=== PATIENT | female | born 1995 | race Caucasian/White ===

== ENCOUNTER 2016-05-30 18:19 | Emergency (ER) | payer OTHER ==
[2016-05-30] MEDS ORDERED: ZOFRAN ODT PO ONE (19:16)
--- NOTE | 2016-05-30 19:57 | PROVIDER DOCUMENTATION ---
HPI-Syncope/Dizziness - General Source: patient - History of Present Illness-Syncope/Dizzy Prior Episodes: reports: single episode today Onset/Duration: reports: 1-3 hours ago Timing: reports: improving Position/Activity at time of episode: reports: sitting Symptoms prior to episode: reports: lightheaded, visual disturbance, nausea/ vomiting, chest pain Context: reports: lost consciousness Loss of Consciousness: brief (seconds) Location of injury. (If syncope resulted in an injury.): reports: none Current Symptoms: reports: weakness Recently Seen Here or By Another Healthcare Provider: No <Ivett Levine - Last Filed: 05/30/16 20:23> <Malick Pierre - Last Filed: 05/30/16 21:32> - General Chief Complaint: Flu Symptoms Stated Complaint: CHEST HURTING, DIZZINESS Time Seen by Provider: 05/30/16 19:07 Allergies/Adverse Reactions: Patient Allergies Allergy/AdvReac Type Severity Reaction Status Date / Time No Known Allergies Allergy Verified 05/30/16 18:55 Home Medications: Home Medication List Medication Instructions Recorded Confirmed Last Taken Type Sertraline [Zoloft] 50 mg PO DAILY 04/08/16 05/30/16 Unknown History Azithromycin 250 mg PO DAILY 05/30/16 05/30/16 05/30/16 History Oseltamivir Phosphate 75 mg PO BID 05/30/16 05/30/16 05/30/16 10:00 History Thonzylamine/Phenylephrine/Dm 10 ml PO DIRECTED 05/30/16 05/30/16 05/30/16 History [Poly-Hist Dm Liquid] - History of Present Illness-Syncope/Dizzy Nature of Presenting Problem: 20 yo female presents to ER with syncope, dizziness with change in position. She was diagnosed with the flu yesterday and placed on tamiflu. (AbnerJune Mariama.) Review of Systems - Adult - REVIEW OF SYSTEMS - ADULT Constitutional: reports: see HPI, fatique Eyes: reports: no symptoms reported Ears, Nose, Mouth & Throat: reports: no symptoms reported Cardiovascular: reports: see HPI, chest pain Respiratory: reports: no symptoms reported Gastrointestinal: reports: see HPI, nausea Genitourinary: reports: no symptoms reported Musculoskeletal: reports: see HPI, muscle aches Integumentary: reports: no symptoms reported Neurological: reports: see HPI, syncope Psychiatric: reports: no symptoms reported Endocrine: reports: no symptoms reported Hematologic/Lymphatic: reports: no symptoms reported Allergic/Immunologic: reports: no symptoms reported All Other Systems: Reviewed and Negative <Ivett Levine. - Last Filed: 05/30/16 20:23> Past History - Adult - PAST MEDICAL HISTORY-ADULT Review of Records: reports: Old Records Reviewed, Nursing Assessment Review, Medications Reviewed, Social history reviewed & non-contributory. Major Childhood Illnesses: reports: denies history Cardiovascular: reports: denies history Respiratory: reports: denies history Gastrointestinal: reports: ulcer (suspected) Obstetrical/Gynecological: reports: denies history Genitourinary: reports: denies history Musculoskeletal: reports: denies history Neurological: reports: denies history Endocrine/Immune: reports: denies history Other Conditions: reports: denies history - PRIOR SURGERIES/PROCEDURES Surgical/Procedure History: reports: none - IMMUNIZATION STATUS Childhood Immunizations: See Nurse Assessment Flu Vaccine: See Nurse Assessment - FAMILY HISTORY Family History: reviewed, not pertinent - SOCIAL HISTORY Smoking: cigarettes, less than 1 pack/day (1/2 ppd) Provider spent 3-5 mins advising pt. on dangers of tobacco.: Discussed manners to quit use, and f/u contacts for add'l counseling. Substance Use: none/never, denies Living Situation: family <Ivett Levine. - Last Filed: 05/30/16 20:23> Physical Exam-General - PHYSICAL EXAM-ADULT Initial Vital Signs Reviewed: Yes - CONSTITUTIONAL General Appearance: appears well, alert, no apparent distress - EYES Eyes: PERRL/EOMI - HEAD, EARS, NOSE, MOUTH & THROAT HENMT: normocephalic/atraumatic - RESPIRATORY Respiratory: lungs clear, normal breath sounds, no respiratory distress - CARDIOVASCULAR Cardiovascular: normal peripheral pulses - GASTROINTESTINAL (ABDOMEN) Abdominal Exam: normal bowel sounds, non tender, soft - MUSCULOSKELETAL Back Exam: normal inspection, no CVA tenderness, no vertebral tenderness Extremity: normal inspection, no pedal edema Peripheral Pulses: radial (R): 2+, radial (L): 2+, dorsalis-pedis (R): 2+, dorsalis-pedis (L): 2+ - SKIN Integumentary: normal color, normal turgor, warm/dry - NEUROLOGIC Neurologic: grossly normal - PSYCHIATRIC Psych/Mental Status: normal mood/affect, normal thought content, normal thought process, oriented x 3 <Ivett Levine - Last Filed: 05/30/16 20:23> Progress - CHANGE OF SHIFT REPORT (ED Provider) Report Given and Care Transferred to:: Malick Pierre NP Time of Transfer: 20:24 Items Pending: Labs, XRAY Results Tentative Impression of Patient: stable <Ivett Levine. - Last Filed: 05/30/16 20:23> Departure - Departure Certified Medical Emergency: Emergent <Ivett Levine. - Last Filed: 05/30/16 20:23> - Departure Time of Disposition Order: 21:28 Certified Medical Emergency: Emergent <Malick Pierre - Last Filed: 05/30/16 21:32> - Departure DIAGNOSIS: Syncope Qualifiers: Syncope type: unspecified Qualified Code(s): R55 - Syncope and collapse Disposition: HOME 01 Condition: Stable Additional Instructions: Drink plenty of fluids to stay hydrated. Tylenol and ibuprofen for pain and fever. ED Follow Up Instructions: You have been treated by a care provider in the Emergency Department. These instructions are being provided to you so you can have an understanding of how to care for yourself upon discharge. Upon discharge from the Emergency Department, you are responsible for making arrangements for follow-up care by a physician of your choice. Take all prescribed medications as directed. Return to the Emergency Department immediately for any new or worsening symptoms. You may call the Physician Referral phone number at [phone] to obtain a list of Physicians who are taking new patients. Referrals: None,PCP [Primary Care Provider] - Attestation - Physician/ JAZMYN Attestation Patient care was provided by Advanced Practice Provider:: Yes Advanced Practice Provider:: Ivett Levine Advanced Practice Provider documentation review:: The Mid-level provider documentation, treatment plan and medical decision making was reviewed by the physician who agrees with all treatment and medical decision making by the MLP. <Ivett Levine - Last Filed: 05/30/16 20:23> Physician Attestation
[2016-05-30 20:03] LABS: MANUAL DIFF NEEDED? NO
[2016-05-30 20:05] LABS: BASO% 0.2 % (0.0-0.8); EOS# 0.01 X1000 (0.0-0.7); EOS% 0.2 % (0.0-10.0); HEMATOCRIT 37.7 % (37.0-47.0); HEMOGLOBIN 12.7 g/dL (12.0-16.0); IMM GRAN# 0.01 X1000 (0.0-0.04); IMM GRAN% 0.2 % (0.0-0.5); LYMPH# 0.95 X1000 (1.2-3.4); LYMPH% 16.3 % (20.5-51.1); MCH 28.9 PG (27-31); MCHC 33.7 g/dL (33-37); MCV 85.9 FL (81-99); MONO# 0.56 X1000 (0.11-0.59); MONO% 9.6 % (1.7-9.3); MPV 9.9 FL (7.4-10.4); NEUT% 73.5 % (42.2-75.2); PLT 230 X1000 (130-400); RBC 4.39 XMIL (4.2-5.4)
[2016-05-30] MEDS ORDERED: NS 1,000 ML IV ONE (20:23)
[2016-05-30 20:31] LABS: URINE SOURCE CLEAN CATCH
[2016-05-30 20:38] LABS: AGAP 10; ALBUMIN 4.2 g/dL (3.5-5.0); ALKALINE PHOSPHATASE 81 U/L (32-104); BUN 13 mg/dL (8-22); CHLORIDE 105 mmol/L (98-107); COSMO 276; GOT 24 U/L (10-30); GPT 19 U/L (10-36); POTASSIUM 3.8 mmol/L (3.5-5.1); SODIUM 138 mmol/L (136-145); TCO2 22 mmol/L (25-35); TOTAL PROTEIN 7.1 g/dL (6.3-8.3)
[2016-05-30 20:44] LABS: BILIRUBIN URINE NEGATIVE (NEGATIVE); BLOOD URINE NEGATIVE (NEGATIVE); CLARITY CLEAR (CLEAR); COLOR YELLOW; GLUCOSE URINE NEGATIVE (NEGATIVE); LEUKOCYTES URINE TRACE (NEGATIVE); NITRITE URINE NEGATIVE (NEGATIVE); SP GRAVITY URINE 1.025; UROBILINOGEN URINE NORMAL
[2016-05-30 20:45] LABS: URINE CULTURE PL NEEDED? YES; URINE EPITHELIAL CELLS >10 /HPF (<10); URINE RBC <10 /HPF (<10); URINE WBC <10 /HPF (<10)
[2016-05-30 21:27] VITALS: BP 091/065
--- NOTE | 2016-05-30 21:34 | ED EKG INTERP ---
EKG Interpretation - EKG Time of EKG reading by physician:: 20:36 EKG Read and Signed by:: Gabriel Tejada EKG Interpretation (*Must complete 3 of following elements*): Abnormal Rate: 81 Rhythm: NSR Winner: normal QRS: normal ST Wave: non-specific ST changes (T WAVE ABNORMALITY, CONSIDER INFERIOR ISCHEMIA ) Attestation - Scribe Verification/Attestation Scribe:: America Mtz Acting as Scribe for:: Gabriel Tejada Scribe documention review:: This chart was documented by a scribe and accurately reflects the service the provider performed and the decisions made by the provider. Physician Attestation - Physician Attestation I, the provider, attest to the following statement:: Gabriel Tejada Physician documentation Attestation:: This documentation recorded by the scribe accurately reflects the service I personally performed and the decisions made by me.
--- NOTE | 2016-05-31 06:31 | EKG Report ---
Test Performed on : 05/30/2016 8:35:24 PM Test Reason : syncope Blood Pressure : / mmHG Vent. Rate : 081 BPM Atrial Rate : 081 BPM P-R Int : 142 ms QRS Dur : 090 ms QT Int : 378 ms P-R-T Axes : 051 004 -36 degrees QTc Int : 439 ms Normal sinus rhythm. T wave abnormality, consider inferior ischemia Abnormal ECG No previous ECGs available Unconfirmed Result
--- NOTE | 2016-05-31 11:48 | Diag Imaging Result Document ---
PROCEDURE NAME: CHEST-2 VIEWS - 05/30/2016 CHEST, 2 VIEWS: COMPARISON: No comparison exam. FINDINGS: Heart size is normal. The lungs appear clear. There is no vascular congestion, pleural effusion, or pneumothorax identified. IMPRESSION: No evidence of acute disease.
== END 2016-05-30 21:52 | disposition home or self-care (01) ==
LOC: P.ED 18:19
DX: R55 Syncope and collapse (principal); R94.31 Abnormal electrocardiogram [ECG] [EKG]; R42 Dizziness and giddiness; R11.2 Nausea with vomiting, unspecified; R07.9 Chest pain, unspecified; R53.1 Weakness; R53.83 Other fatigue; M79.1 Myalgia; F17.210 Nicotine dependence, cigarettes, uncomplicated; Z71.6 Tobacco abuse counseling
CPT/HCPCS: 71020; 80053; 81001; 81025; 85025; 87088; 93005; 96360; J7030